=== PATIENT | female | born 1995 | race Caucasian/White ===

== ENCOUNTER → 2017-01-10 13:12 | Outpatient (CLI) | payer OTHER | END | disposition home or self-care (01) | LOC: D.US 01-04 09:00 | DX: E04.9 Nontoxic goiter, unspecified (principal) ==

== ENCOUNTER → 2017-06-16 14:52 | Outpatient (CLI) | payer OTHER ==
[2017-06-16 16:15] LABS: APPEARANCE CLEAR (CLEAR); BILIRUBIN NEGATIVE (NEGATIVE); COLOR YELLOW (YELLOW); GLUCOSE NEGATIVE (NEGATIVE); KETONE NEGATIVE (NEGATIVE); LEUKOCYTE ESTERASE NEGATIVE (NEGATIVE); NITRITE NEGATIVE (NEGATIVE); PROTEIN NEGATIVE (NEGATIVE); SPECIFIC GRAVITY 1.005 (1.005-1.020); UROBILINOGEN NORMAL (NORMAL)
== END | disposition home or self-care (01) ==
LOC: D.LDO 14:52
PROVIDERS: Obstetrics & Gynecology
DX: Z34.83 Encounter for supervision of other normal pregnancy, third trimester (principal); Z3A.32 32 weeks gestation of pregnancy; M54.5 Low back pain

== ENCOUNTER 2017-08-05 20:11 | Inpatient (IN) | payer OTHER ==
[~2017-08-05] VITALS: Ht 167.6 cm; Wt 72.6 kg
[2017-08-05 23:39] VITALS: Ht 167.6 cm; Wt 72.6 kg
[2017-08-07 07:30] VITALS: BP 116/75
[2017-08-07] MEDS ORDERED: IBUPROFEN600 MG PO (13:07)
[2017-08-07] MEDS ORDERED: HYDROCODON-ACE1 EAC7 PO (13:08)
== END 2017-08-07 14:00 | disposition home or self-care (01) | DRG 775 ==
LOC: D.LDO 20:11 → D.LD 20:26 → D.WS 08-06 17:27
PROVIDERS: ADMIT Obstetrics & Gynecology
PROC: 10E0XZZ Delivery of Products of Conception, External Approach (ICD-10-PCS; principal; 2017-08-05)
DX: O80 Encounter for full-term uncomplicated delivery (principal); Z3A.39 39 weeks gestation of pregnancy; Z37.0 Single live birth

== ENCOUNTER 2019-03-05 13:14 | Emergency (ER) | payer OTHER ==
[~2019-03-05] VITALS: Ht 167.6 cm; Wt 61.4 kg
[~2019-03-05 13:14] MED LIST: HYDROCODON-ACE1 EAC7 PO; IBUPROFEN600 MG PO
[2019-03-05 13:30] VITALS: Ht 167.6 cm; Wt 61.4 kg
[2019-03-05] MEDS ORDERED: [UNRECOGNIZED DRUG - REMARK] (13:33)
[2019-03-05 14:28] LABS: BASOPHILS 0.1 % (0-2); EOSINOPHILS 0.7 % (0-7); HEMATOCRIT 37.5 % (36.0-48.0); HEMOGLOBIN 13.1 g/dL (12-16); IMMATURE GRANULOCYTES 0.1 % (0-5); LYMPHOCYTES 18.7 % (15-50); MCH 31.8 pg (26.0-34.0); MCHC 34.9 g/dL (31.0-37.0); MEAN PLATELET VOLUME 9.6 fL (7.4-10.4); MONOCYTES 3.6 % (2-11); NEUTROPHILS 76.8 % (40-80); RBC 4.12 10x6/uL (4.00-5.40); RDW 12.4 % (11.5-14.5); WBC 7.4 10x3/uL (4.8-10.8)
[2019-03-05 14:29] LABS: PLATELET COUNT 263 10x3/uL (130-400)
[2019-03-05 14:31] LABS: APPEARANCE HAZY (CLEAR); COLOR YELLOW (YELLOW); GLUCOSE NEGATIVE (NEGATIVE); KETONE NEGATIVE (NEGATIVE); NITRITE NEGATIVE (NEGATIVE); PROTEIN NEGATIVE (NEGATIVE)
[2019-03-05 14:32] LABS: BILIRUBIN NEGATIVE (NEGATIVE)
[2019-03-05 14:50] LABS: ALBUMIN 3.4 g/dL (3.4-5.0); ALKALINE PHOSPHATASE 67 U/L (46-116); ALT (SGPT) 14 U/L (10-68); BILIRUBIN - TOTAL 0.27 mg/dL (0.2-1.3); CALC OSMOLALITY 267 mosm/kg (275-300); CALCIUM 8.6 mg/dL (8.5-10.1); CARBON DIOXIDE 28.1 mmol/L (21.0-32.0); CHLORIDE - SERUM 100 mmol/L (98-107); CREATININE - SERUM 0.4 mg/dL (0.6-1.3); GLUCOSE 90 mg/dL (74-106); PROTEIN - SERUM 7.5 g/dL (6.4-8.2); SODIUM 135 mmol/L (136-145); UREA NITROGEN 6 mg/dL (7-18); eGFR NON AFRICAN AMERICAN > 90 mL/min (90-120)
[2019-03-05 15:14] LABS: HCG - QUANTITATIVE (MATERNAL) 196837 mIU/mL
[2019-03-05] MEDS ORDERED: TYLENOL W/CODEI1 TAB PO (17:25)
[2019-03-05 18:36] VITALS: BP 132/70
== END 2019-03-05 18:34 | disposition home or self-care (01) ==
LOC: D.ER 13:14
PROVIDERS: Emergency Medicine
DX: O46.8X1 Other antepartum hemorrhage, first trimester (principal); Z3A.10 10 weeks gestation of pregnancy

== ENCOUNTER 2019-07-12 19:33 | Outpatient (CLI) | payer OTHER ==
[2019-03-05 13:30] VITALS: BMI 21.8
[~2019-07-12 19:33] MED LIST changes: +TYLENOL W/CODEI1 TAB PO; +[UNRECOGNIZED DRUG - REMARK]
[2019-07-12 19:54] LABS: APPEARANCE CLEAR (CLEAR); BILIRUBIN NEGATIVE (NEGATIVE); COLOR YELLOW (YELLOW); GLUCOSE NEGATIVE (NEGATIVE); KETONE MODERATE mg/dL (NEGATIVE); NITRITE NEGATIVE (NEGATIVE); PROTEIN NEGATIVE (NEGATIVE)
[2019-07-12 19:55] LABS: EPITHELIAL CELLS 0-5 /hpf (0-5); RED CELLS - URINE 0-5 /hpf (0-5); WHITE CELLS - URINE 0-5 /hpf (0-5)
[2019-07-12 19:56] LABS: BACTERIA FEW /hpf (NONE SEEN)
[2019-07-12 20:45] LABS: BASOPHILS 0 % (0-2); EOSINOPHILS 0 % (0-7); HEMATOCRIT 33.9 % (36.0-48.0); HEMOGLOBIN 12.3 g/dL (12-16); IMMATURE GRANULOCYTES 0.3 % (0-5); LYMPHOCYTES 5.6 % (15-50); MCH 33.3 pg (26.0-34.0); MCHC 36.3 g/dL (31.0-37.0); MCV 91.9 fL (80.0-100.0); MEAN PLATELET VOLUME 10.1 fL (7.4-10.4); MONOCYTES 3.4 % (2-11); NEUTROPHILS 90.7 % (40-80); PLATELET COUNT 228 10x3/uL (130-400); RBC 3.69 10x6/uL (4.00-5.40); RDW 12.6 % (11.5-14.5); WBC 8.9 10x3/uL (4.8-10.8)
[2019-07-12 21:07] LABS: ALBUMIN 2.4 g/dL (3.4-5.0); ALKALINE PHOSPHATASE 129 U/L (46-116); ALT (SGPT) 13 U/L (10-68); AMYLASE - SERUM 58 U/L (25-115); BILIRUBIN - TOTAL 0.48 mg/dL (0.2-1.3); CALC OSMOLALITY 265 mosm/kg (275-300); CALCIUM 8.1 mg/dL (8.5-10.1); CARBON DIOXIDE 21.8 mmol/L (21.0-32.0); CHLORIDE - SERUM 103 mmol/L (98-107); CREATININE - SERUM 0.3 mg/dL (0.6-1.3); GLUCOSE 78 mg/dL (74-106); LIPASE 132 U/L (73-393); POTASSIUM - SERUM 3.2 mmol/L (3.5-5.1); PROTEIN - SERUM 6.5 g/dL (6.4-8.2); SODIUM 135 mmol/L (136-145); UREA NITROGEN 5 mg/dL (7-18); eGFR NON AFRICAN AMERICAN > 90 mL/min (90-120)
[2019-07-13 05:28] LABS: APPEARANCE CLEAR (CLEAR); COLOR DK YELLOW (YELLOW); NITRITE NEGATIVE (NEGATIVE); PROTEIN NEGATIVE (NEGATIVE); SPECIFIC GRAVITY 1.015 (1.005-1.020)
[2019-07-13 05:29] LABS: BILIRUBIN NEGATIVE (NEGATIVE); GLUCOSE NEGATIVE (NEGATIVE); KETONE MODERATE mg/dL (NEGATIVE)
[2019-07-13 09:49] LABS: APPEARANCE CLEAR (CLEAR); BILIRUBIN NEGATIVE (NEGATIVE); COLOR YELLOW (YELLOW); GLUCOSE NEGATIVE (NEGATIVE); KETONE NEGATIVE (NEGATIVE); NITRITE NEGATIVE (NEGATIVE); PROTEIN NEGATIVE (NEGATIVE); SPECIFIC GRAVITY 1.015 (1.005-1.020); UROBILINOGEN NORMAL (NORMAL)
== END 2019-07-13 11:00 ==
LOC: D.LDO 19:33 → D.LD 22:29 → D.LDO 07-13 11:00
PROVIDERS: ATTEND Obstetrics & Gynecology
DX: O26.899 Other specified pregnancy related conditions, unspecified trimester (principal); Z3A.00 Weeks of gestation of pregnancy not specified; R11.2 Nausea with vomiting, unspecified

== ENCOUNTER → 2019-08-27 13:38 | Outpatient (CLI) | payer OTHER ==
[2019-03-05 13:30] VITALS: BMI 21.8
[~2019-08-27 13:38] MED LIST changes: +HYDROCODON-ACE1 EA10 PO; +MOTRIN600 MG PO
== END | disposition home or self-care (01) ==
LOC: D.LDO 13:38
PROVIDERS: ATTEND Obstetrics & Gynecology
DX: O36.8130 Decreased fetal movements, third trimester, not applicable or unspecified (principal); Z3A.36 36 weeks gestation of pregnancy

== ENCOUNTER → 2019-09-02 15:27 | Outpatient (CLI) | payer OTHER ==
[2019-03-05 13:30] VITALS: BMI 21.8
[2019-09-02 16:54] LABS: APPEARANCE CLEAR (CLEAR); BACTERIA MANY /hpf (NEGATIVE); BILIRUBIN NEGATIVE (NEGATIVE); COLOR YELLOW (YELLOW); GLUCOSE NEGATIVE (NEGATIVE); KETONE NEGATIVE (NEGATIVE); MUCUS <1+ /lpf (NONE SEEN); NITRITE NEGATIVE (NEGATIVE); PROTEIN NEGATIVE (NEGATIVE); RED CELLS - URINE OCC /hpf (0-5); UROBILINOGEN NORMAL (NORMAL)
== END | disposition home or self-care (01) ==
LOC: D.LDO 15:27
PROVIDERS: ATTEND Obstetrics & Gynecology
DX: O26.893 Other specified pregnancy related conditions, third trimester (principal)

== ENCOUNTER 2019-09-13 17:01 | Inpatient (IN) | payer OTHER ==
[~2019-09-13] VITALS: Ht 167.6 cm; Wt 74.1 kg
[~2019-09-13 17:01] MED LIST changes: -HYDROCODON-ACE1 EA10 PO; -MOTRIN600 MG PO
[2019-09-14] VITALS (19 sets, daily range): BP systolic 99–131; BP diastolic 56–85; Ht 167.6 cm; Wt 74.1 kg
[2019-09-14 06:36] LABS: UDS - AMPHET NEGATIVE QUAL (NEGATIVE); UDS - BARB NEGATIVE QUAL (NEGATIVE); UDS - BENZO NEGATIVE QUAL (NEGATIVE); UDS - COCAINE NEGATIVE QUAL (NEGATIVE); UDS - OPIATE NEGATIVE QUAL (NEGATIVE); UDS - PCP NEGATIVE QUAL (NEGATIVE); UDS - THC NEGATIVE QUAL (NEGATIVE)
[2019-09-14 07:31] LABS: HEMATOCRIT 34.8 % (36.0-48.0); HEMOGLOBIN 11.4 g/dL (12-16); MCH 31.2 pg (26.0-34.0); MCHC 32.8 g/dL (31.0-37.0); MCV 95.3 fL (80.0-100.0); RBC 3.65 10x6/uL (4.00-5.40); RDW 13.1 % (11.5-14.5); WBC 8.7 10x3/uL (4.8-10.8)
--- NOTE | 2019-09-14 12:24 | NUR ---
DR PERALES AT [facility]. UPDATES SIGNIFICANT OTHER ON PT STATUS.
--- NOTE | 2019-09-14 12:36 | NUR ---
DR SMITH TO PT ROOM-1274 TO SPEAK WITH FAMILY.
--- NOTE | 2019-09-14 13:20 | NUR ---
DR SMITH CALLS. ORDER RECEIVED TO REPEAT KUB XRAY. RADIOLOGY DEPT NOTIFIED OF ORDER.
--- NOTE | 2019-09-14 14:19 | NUR ---
PATIENT CONTINUES TO HAVE EPISODES OF VOMITING AFTER GIVING ZOFRAN 4MG IV X1 IN PACU. AT [address] CALDERON REGARDING THE ABOVE. VERBAL ORDERS RECEIVED TO ADMINISTER PHENERGAN 12.5MG IV X1 IN PACU NOW. ORDERS RECEIVED FOR PHENERGAN 12.5MG IM PRN X1. ORDERS RECEIVED AND IMPLEMENTED. WILL CONTINUE TO MONITOR.
[2019-09-14 14:31] LABS: BASOPHILS 0.2 % (0-2); EOSINOPHILS 0.4 % (0-7); HEMATOCRIT 36.8 % (36.0-48.0); HEMOGLOBIN 12.2 g/dL (12-16); IMMATURE GRANULOCYTES 0.3 % (0-5); LYMPHOCYTES 11.2 % (15-50); MCH 31.4 pg (26.0-34.0); MCHC 33.2 g/dL (31.0-37.0); MCV 94.6 fL (80.0-100.0); MEAN PLATELET VOLUME 10.6 fL (7.4-10.4); MONOCYTES 4.4 % (2-11); NEUTROPHILS 83.5 % (40-80); PLATELET COUNT 234 10x3/uL (130-400); RBC 3.89 10x6/uL (4.00-5.40); RDW 13.6 % (11.5-14.5)
[2019-09-14 14:32] LABS: WBC 13.9 10x3/uL (4.8-10.8)
[2019-09-14 14:34] LABS: APTT 27.5 SECONDS (22.8-39.4); INR 1.03 (0.85-1.17)
--- NOTE | 2019-09-14 14:35 | NUR ---
RECEIVED PT FROM VIA BED TO ROOM 1274. BED LOCKED AND PLACED IN LOW POSITION. VSS. HRRR WITHOUT AUDIBLE MURMUR. BBS WITH INSPIRATORY CRACKLES. PT STATES SMOKER (5-6 CIG/DAY). PT INSTRUCTED ON INCENTIVE SPIROMETER AND TCDB. PT PULLS 1600 ON INCENTIVE SPIROMETER. ABDOMEN SOFT/NON-DISTENDED. ABDOMINAL DRESSING DRY WITHOUT DRAINAGE NOTED. SMALL AMT OF SEROSANGUINOUS VAGINAL DISCHARGE NOTED. MOD EDEMA NOTED TO LABIA. NEG HOMANS' SIGN. PPP. NO EDEMA NOTED TO BLE. SCDS ON BLE. PUMP ON. CASILLAS TO GRAVITY DRAINING DARK, YELLOW URINE. ICE PACK TO INCISION. PT PROVIDED SURGICAL PILLOW AND INSTRUCTED ON USE. PIV OF NS INFUSING AT 125 ML/HR TO RIGHT WRIST. SITE CLEAR. PT STATES INCISIONAL PAIN OF "8" ON 0-10 PAIN SCALE. PT ORIENTED TO ROOM, BED, AND CALL LIGHT. SR UP X 2. CALL LIGHT IN REACH. FAMILY AT BEDSIDE.
--- NOTE | 2019-09-14 14:43 | NUR ---
DILAUDID ELECTROMAGNET CRANE OPERATOR STARTED ORDERED. PT INSTRUCTED ON MED AND USE OF ELECTROMAGNET CRANE OPERATOR BUTTON. DEMONSTRATES UNDERSTANDING.
--- NOTE | 2019-09-14 15:00 | NUR ---
ATTEMPT PIV START X 3. UNSUCCESSFUL.
--- NOTE | 2019-09-14 15:02 | NUR ---
DR CALDERON NOTIFIED OF NEED FOR PIV START.
--- NOTE | 2019-09-14 15:21 | NUR ---
DR CALDERON TO ROOM. SL STARTED TO LEFT HAND WITH 20 GAUGE CATHELON X 1 VENIPUNCTURE. PT SHANTEL WELL.
--- NOTE | 2019-09-14 15:29 | NUR ---
DR SMITH NOTIFIED OF LAB RESULTS. ORDER RECEIVED TO REPEAT CBC IN 2 HOURS.
--- NOTE | 2019-09-14 16:00 | NUR ---
PT LYING SUPINE IN BED. EYES CLOSED. RESP NON-LABORED. PT NOT DISTURBED TO ALLOW FOR REST. SR UP X2. CALL LIGHT IN REACH.
--- NOTE | 2019-09-14 16:50 | NUR ---
PT IN SEMI-RAY'S POSITION IN BED. CONSUMING CLEAR LIQUID DIET. TOLERATING WELL. STATES PAIN MED RELEIVING PAIN. STATES "I DON'T LIKE HOW IT MAKES ME SO SLEEPY".
--- NOTE | 2019-09-14 18:30 | NUR ---
DR SMITH CALLS. NOTIFIED PER Rebeka ESPINOZA RN THAT CBC RESULTS NOT BACK YET. ORDERS RECEIVED.
[2019-09-14 18:36] LABS: BASOPHILS 0.2 % (0-2); EOSINOPHILS 0.4 % (0-7); HEMOGLOBIN 12.2 g/dL (12-16); IMMATURE GRANULOCYTES 0.5 % (0-5); LYMPHOCYTES 13.1 % (15-50); MCH 31.3 pg (26.0-34.0); MCHC 33.9 g/dL (31.0-37.0); MEAN PLATELET VOLUME 10.9 fL (7.4-10.4); MONOCYTES 5.7 % (2-11); NEUTROPHILS 80.1 % (40-80); PLATELET COUNT 241 10x3/uL (130-400); RDW 13.7 % (11.5-14.5); WBC 12.8 10x3/uL (4.8-10.8)
[2019-09-14 18:38] LABS: MCV 92.3 fL (80.0-100.0)
--- NOTE | 2019-09-14 18:57 | NUR ---
PT SITTING UP IN BED. CARING FOR INFANT. PERIPAD CHANGED WITH MOD AMT OF SEROSANGUINOUS DISCHARGE NOTED. MOD EDEMA TO LABIA. ICA PACK TO LABIA. ABDOMINAL DRESSING DRY WITHOUT DRAINAGE. FRESH ICE PACK TO INCISION. I/O COMPLETED. PT STATES PAIN OF "5" ON 0-10 PAIN SCALE. STATES PAIN MED RELIEVING PAIN MED. REQUESTS AND RECEIVES TAKEN TO NURSERY TO ALLOW PT TO REST. NO FAMILY IN ROOM AT THIS TIME.
[2019-09-14 19:06] LABS: APTT 24.9 SECONDS (22.8-39.4); PROTIME 12.7 SECONDS (11.6-15.0)
--- NOTE | 2019-09-14 19:55 | NUR ---
pt in with visitors at this time. alert and oriented. no distress noted. trudi bradley rn
--- NOTE | 2019-09-14 20:45 | NUR ---
pt spuse has arrived. pt still with visitors and infnat in nursery. pt states that she hurts with coughing. pt encouraged to use animal care giver as needed to control pain. understanding verbalized. alvarez rae
--- NOTE | 2019-09-14 21:11 | NUR ---
CHICKEN BROTH AND JELLO PROVIDED PER PT REQUEST. NO FURTHER NEEDS IDENTIFIED. PT SITTING UP IN BED BOTTLE FEEDING INFANT AT THIS TIME. FAMILY AND FRIENDS REMAIN AT BEDSIDE FOR SUPPORT. BED REMAINS LOCKED IN LOW POSITION, SIDE RAILS UPX2, CALL CONKLIN AND TRAY TABLE IN REACH. WILL CONTINUE TO MONITOR.
--- NOTE | 2019-09-14 21:20 | NUR ---
PT REC'D IN BED AT THIS TIME. MULTIPLE VISITORS AT THE BEDSIDE. NO ACUTE DISTRESS NOTED. IV OF NS INFUSING TO THE RT WRIST. SITE CLEAR AND PATNET AT THIS TIME. LUNGS WITH EXPIRATORY WHEEZES THAT CLEAR WITH COUGHING. BS+. DRESSING TO ABDOMEN CDI. CASILLAS CATH PATENT. 150 ML OF YELLOW URINE EMPTIED. SCDS ON AND FUNCTIONAL. PT ENCOURAGED TO COUGH AND DEEP BREATHE. UNDERSTANDING VERBALIZED. SIDERAIL UP FOR SAFETY. CALL LIGHT IN PT REACH. Pa FABIAN RN
--- NOTE | 2019-09-14 21:20 | NUR ---
PT ASLEEP AT THIS TIME RESTING WELL AT THIS TIME. NO DISTRESS NOTED AT THIS TIME. Pa FABIANRN
--- NOTE | 2019-09-14 22:11 | NUR ---
PT SITTING UP IN BED, REQUESTS THAT GO BACK TO THE NURSERY. ISMAEL FUNK BRINGING BABY BACK TO NURSERY VIA OPEN CRIB. PTS SIGNIFICANT OTHER PROVIDED WITH SHEETS,BLANKET AND PILLOWS. NO FURTHER NEEDS IDENTIFIED. WILL CONTINUE TO MONITOR.
[2019-09-15] VITALS (7 sets, daily range): BP systolic 114–137; BP diastolic 70–83
--- NOTE | 2019-09-15 00:30 | NUR ---
INFANT TAKEN TO PATIENT FOR FEEDING AT THIS TIME. COUGHING AND DEEP BREATHING PERFORMED AT THIS TIME. WILL CONTINUE TO MONITOR, NO NEEDS VOICED AT THIS TIME. Pa FABIAN. RN
--- NOTE | 2019-09-15 01:15 | NUR ---
VSS. PERICARE PROVIDED AT THIS TIME. NO ACUTE DISTRESS NOTED AT THIS TIME. WATER TAKEN TO PATIENT. 150 ML EMPTIED FROM CASILLAS CATH AT THIS TIME. Pa FABIAN RN
--- NOTE | 2019-09-15 04:01 | NUR ---
PT REC'D IN BED AT THIS TIME. VSS. 200 ML EMPTIED FROM CASILLAS CATH AT THIS TIME. PT STATES THAT PAIN IS AN 8 THIS AM STATES THAT BACK AND HIPS HURTS THIS MORNING. PT ENCOURAGED TO USE NEEDLE LOOM OPERATOR FOR PAIN CONTROL. NO DISTRESS NOTED. Pa FABIAN RN
--- NOTE | 2019-09-15 04:20 | NUR ---
LAB HERE FOR BLOOD DRAW. Pa FABIAN RN
[2019-09-15 06:06] LABS: BASOPHILS 0.1 % (0-2); EOSINOPHILS 0.7 % (0-7); IMMATURE GRANULOCYTES 0.1 % (0-5); MCH 30.9 pg (26.0-34.0); MCHC 32.7 g/dL (31.0-37.0); MEAN PLATELET VOLUME 10.7 fL (7.4-10.4); MONOCYTES 5.1 % (2-11); RDW 14.2 % (11.5-14.5)
[2019-09-15 06:11] LABS: HEMATOCRIT 27.5 % (36.0-48.0); MCV 94.5 fL (80.0-100.0); PLATELET COUNT 188 10x3/uL (130-400); RBC 2.91 10x6/uL (4.00-5.40)
[2019-09-15 06:29] LABS: ALBUMIN 1.2 g/dL (3.4-5.0); ALKALINE PHOSPHATASE 122 U/L (46-116); ALT (SGPT) 7 U/L (10-68); BILIRUBIN - TOTAL 0.16 mg/dL (0.2-1.3); CALC OSMOLALITY 270 mosm/kg (275-300); CALCIUM 7.3 mg/dL (8.5-10.1); CARBON DIOXIDE 20.8 mmol/L (21.0-32.0); CHLORIDE - SERUM 107 mmol/L (98-107); CREATININE - SERUM 0.3 mg/dL (0.6-1.3); POTASSIUM - SERUM 3.8 mmol/L (3.5-5.1); PROTEIN - SERUM 3.7 g/dL (6.4-8.2); SODIUM 138 mmol/L (136-145); UREA NITROGEN 4 mg/dL (7-18); eGFR NON AFRICAN AMERICAN > 90 mL/min (90-120)
[2019-09-15 06:42] LABS: GLUCOSE 57 mg/dL (74-106)
--- NOTE | 2019-09-15 07:15 | NUR ---
PT SITTING UP IN BED AWAKE & ALERT X3 WITH NO C/O AT THIS TIME. PLAN OF CARE DISCUSSED W/ PT. PT VOICED UNDERSTANDING. SR UP X2 CALL KATERIN W/IN REACH. PT IN STABLE CONIDTION AT THIS TIME.
--- NOTE | 2019-09-15 07:35 | NUR ---
PAIN MEDS GIVEN TO PT AT THIS TIME. PT ENCOURAGED TO EAT BREAKFAST W/ MEDS. SEE EMAR FOR PAIN SCALE. NBN RN IN ROOM AT THIS TIME ALSO.
--- NOTE | 2019-09-15 08:15 | NUR ---
PT'S IV SALINE LOCKED AT THIS TIME. IV SITE W/ NO REDNESS, SWELLING, OR PAIN. CASILLAS CATH. ALSO D/C'ED AT THIS TIME. PT ASSISTED TO RESTROOM. PT W/ NO C/O DIZZYNESS. PT W/ STEADY GAIT. PT UNABLE TO VOID AT THIS TIME. PT ABLE TO PERFORM SELF CAREN CARE. PT'S GOWN & LINENS CHANGED. PT AMBULATED W/ STEADY GAIT BACK TO BED. NEW ICE PACK GIVEN TO PT TO PLACE ON TOP OF GOWN OVER INCISION. PT IN STABLE CONDITION AT THIS TIME.
--- NOTE | 2019-09-15 08:45 | NUR ---
I have reviewed this patient and I concur with the Shift Assessment completed by the Alvina Naqvi RN, for am shift.
--- NOTE | 2019-09-15 09:30 | NUR ---
PT ASSISTED UP TO RESTROOM AT THIS TIME. PT W/ NO C/O DIZZYNESS. PT W/ STEADY GAIT. PT ABLE TO VOID W/O DIFFICULTY. PT PERFORMED OWN SANJANA CARE. PT BACK TO BED IN STABLE CONDITION AT THIS TIME. SRUPX2 CALL LIGHT W/IN REACH.
[2019-09-15 10:10] LABS: RAPID PLASMA REAGIN Non Reactive (Non Reactive)
--- NOTE | 2019-09-15 10:30 | NUR ---
PT SITTING UP IN BED HOLDING . PT W/ NO C/O AT THIS TIME. SRUPX2 CALL LIGHT W/IN REACH. PT IN STABLE CONDITION AT THIS TIME.
--- NOTE | 2019-09-15 11:30 | NUR ---
PT UP TO RESTROOM W/ NO DIZZYNESS. PT HAS STEADY GAIT. PT ABLE TO VOID W/O DIFFICULTY. PT STATES "I FEEL BETTER WHEN I'M UP OUT OF BED." PT IN STABLE CONDITION.
--- NOTE | 2019-09-15 12:15 | NUR ---
PT STATES "PAIN IS BETTER SINCE TAKING PAIN MED IT JUST HURTS TO COUGH." PT ENCOURAGED TO PLACE PILLOW OVER ABD. WHEN COUGHING. PT VOICED UNDERSTANDING.
--- NOTE | 2019-09-15 13:03 | NUR ---
PT WALKING IN HALLWAYS AT THIS TIME W/ STEADY GAIT.
--- NOTE | 2019-09-15 14:00 | NUR ---
PT SITTING UP IN BED HOLDING AT THIS TIME. SRUPX2 CALL LIGHT WITHIN REACH.
--- NOTE | 2019-09-15 15:45 | NUR ---
PT D/C'ED AT THIS TIME VIA WHEELCHAIR W/ . PT IN STABLE CONDITION.
--- NOTE | 2019-09-15 16:15 | NUR ---
PT SITTING UP IN BED AWAKE & ALERT HOLDING . PT IN STABLE CONDITION AT THIS TIME.
--- NOTE | 2019-09-15 17:50 | NUR ---
PT C/O GAS PAIN PT GIVEN SIMETHICONE AT THIS TIME. PT SITTING UP IN BED AT THIS TIME SRUPX2 CALL LIGHT W/IN REACH.
--- NOTE | 2019-09-15 19:43 | NUR ---
RN AT [facility] FOR ASSESSMENT OF PT. SEE FLOW SHEET. PT C/O PAIN 06/27 AND REQUESTED PAIN MEDS.
--- NOTE | 2019-09-15 20:10 | NUR ---
NARCO 10 GIVEN PO FOR PAIN IN THE INCISION AREA AND BACK. BABY IS IN THE ROOM WITH MOM AT THIS TIME.
--- NOTE | 2019-09-15 21:05 | NUR ---
PT IS RESTING QUIETLY IN ROOM. AT BEDSIDE. STATES PAIN IS AT A 5. AMBULATING IN ROOM.
--- NOTE | 2019-09-15 21:42 | NUR ---
PT REC'D IN BED ON PHONE AT THIS TIME. DENIES NEEDS AT THIS TIME. VERBALIZES REDUCED PAIN. NO ACUTE DISTRESS NOTED. SPOUSE AT BEDSIDE. Pa FABIAN RN
--- NOTE | 2019-09-15 22:20 | NUR ---
PT IS RESTING IN BED WATCHING TV WITH . SHE STATES HER PAIN IS NOW AT A 3. NO OTHER NEEDS AT THIS TIME.
--- NOTE | 2019-09-15 23:00 | NUR ---
Rounds: PT IS AWAKE AT THIS TIME CHANGING BABY. RE-EDUCATED ON GOOD HANDWASHING TO PREVENT SPREAD OF GERMS TO BABY AND TO HERSELF. STATES HER PAIN LEVEL IS STILL A 3.
--- NOTE | 2019-09-16 00:11 | NUR ---
BEDSIDE ROUNDING: PT IS RESTING IN BED. SHE C/O PAIN IN HER INCISION AREA AND RATED THE PAIN AN 8. SHE REQUESTED A NARCO 10 FOR PAIN. THIS WAS GIVEN. SHE STATES SHE IS GOING TO BED NOW FOR SOME REST.
--- NOTE | 2019-09-16 01:35 | NUR ---
PT STATES PAIN IS NOW A 5/10. NO NEEDS VERBALIZED AT THIS TIME. SIDERAILS UP FOR SAFETY. CALL LIGHT IN PT REACH. Pa FABIAN RN
--- NOTE | 2019-09-16 02:30 | NUR ---
Pt is sleeping soundly at this time as well as her . No c/o now.
--- NOTE | 2019-09-16 04:37 | NUR ---
Pt request pain med for incisional pain rated an 8. Narco 10 given po. Pt states she is passing gas. Is sleepy at this time and states she is going back to sleep.
[2019-09-16 05:44] VITALS: BP 120/76
--- NOTE | 2019-09-16 05:44 | NUR ---
PT VERBALIZES PAIN LEVEL OF 4. VSS. NO NEEDS VOICED. Pa FABIAN, RN
--- NOTE | 2019-09-16 08:30 | NUR ---
AM ASSESSMENT COMPLETED CHARTED ON FLOWSHEET. PT RATES PAIN AT 5/10 AND STATES IT IS GETTING BETTER SINCE SHE RECIEVED PAIN MED. BOWEL SOUNDS PRESENT AND PT IS PASSING GAS. ENCOURAGED TO WALK WHEN SHE FEELS BETTER. IN CRIB AT BEDSIDE CALL LIGHT IN REACH.
--- NOTE | 2019-09-16 10:45 | NUR ---
DENIES NEEDS AT THIS TIME, BONDING WITH CALL LIGHT IN REACH.
--- NOTE | 2019-09-16 12:30 | NUR ---
PAIN MED GIVEN PER REQUEST SCANNED TO EMAR. RATES PAIN AT 10. IN CRIB AT BEDSIDE. SIDE RAILS UP X 2 WITH CALL LIGHT IN REACH.
--- NOTE | 2019-09-16 16:30 | NUR ---
PAIN MED GIVEN FOR PAIN THAT SHE RATES AT 7/10. DENIES ANY OTHER NEEDS AT THIS TIME.
--- NOTE | 2019-09-16 17:15 | NUR ---
TOWELS PROVIDED PER REQUEST FOR HER TO SHOWER, INFANT TAKEN TO NURSERY BY NURSERY NURSE. PT UNDERSTANDS TO USE EMERGENCY CALL LIGHT IF SHE NEEDS ANY ASSISTANCE.
--- NOTE | 2019-09-16 18:00 | NUR ---
PT AND SPOUSE AMB IN HALLS WITH IN CRIB.
[2019-09-16 19:15] VITALS: BP 132/84
--- NOTE | 2019-09-16 19:15 | NUR ---
RN AT BEDSIDE. ASSESSMENT COMPLETED. SEE FLOW SHEET.
--- NOTE | 2019-09-16 20:11 | NUR ---
Pt c/o pain and rated it an 8. Narco 10 was given po. PAIN IS CRAMYP/ACHY
--- NOTE | 2019-09-16 21:15 | NUR ---
PT IS DOING WELL AT THIS TIME. sTATES PAIN IS A 6. SHE HAS BEEN AMBULATING IN THE HALLS.
--- NOTE | 2019-09-16 22:15 | NUR ---
pt states her pain level is at a 5 at this time. she is sitting up in bed playing with here baby. Before the baby was brought back to her, pt has been ambulating in the halls for her gas symptoms. at bedside.
--- NOTE | 2019-09-16 23:41 | NUR ---
pT WALKING THE HALLS AGAIN. SHE STATES SHE IS FEELING BETTER, PAIN A 5. bABY IS IN THE ROOM NOW.
[2019-09-16 23:53] VITALS: BP 121/84
--- NOTE | 2019-09-16 23:55 | NUR ---
PT IN BED WATCHING TV. SHE DID NOT C/O OF PAIN AT THIS TIME. NO OTHER C/O NOTED.
--- NOTE | 2019-09-17 00:33 | NUR ---
PT C/0 PAIN RATED AN 8. pAIN IS INCISIONAL PAIN. PLANNING TO SLEEP SOOM.
--- NOTE | 2019-09-17 02:30 | NUR ---
Pt is sleeping at this time. No c/o. is in the room.
--- NOTE | 2019-09-17 04:10 | NUR ---
Pt is awake with her baby now. States pain is ok for now. NO OTHER C/O
--- NOTE | 2019-09-17 05:20 | NUR ---
pT C/O PAIN AND RATES IT AN 8. PAIN IS INCISIONAL. nARCO 10 GIVEN PO.
--- NOTE | 2019-09-17 07:30 | NUR ---
PT SITTING UP ASLEEP AT THIS TIME. PT SAT UP NURSES CAME INTO ROOM FOR SHIFT REPORT. PT W/ NO C/O AT THIS TIME.
--- NOTE | 2019-09-17 07:51 | NUR ---
Sumi Dangelo [birth year] S: Patient states she is doing both breast and formula. will latch for 5 minutes on one breast, she will remove infant then burp, and offer infant the other breast. She will then give formula and she will drink most of the bottle. States she did breastfeed her other children and is unsure why only latches for a few minutes at a time. Denies any other questions or concerns about . Verbally agrees to let hospital staff know of her concerns or questions. Patient will like to make a [facility] appointment. O: Patient sitting up in bed holding infant who is sleeping. family member sleeping on sofa sleeping. Praised for and informed does take time, practice, and patience in the beginning. Validated patient concerns. Try stimulating infant to wake for feeding if falls asleep at the breast. Provided tips on waking a sleeping . Infant should nurse longer then 5 minutes. Allow infant to remain latched at the first breast for as long as infant will suck. It is normal for infant to suck, stop and repeat this process through out . This doesn't mean doesn't want to nurse. Supply and demand. Were the demand is needed, the supply will follow. Your body will adjust to making what infant needs as long as infant is placed to the breast for every feeding. Explained normal feeding patterns, benefits of skin to skin, feeding cues, breastmilk composition, and encouraged to practice responsive feeding to help with establishing her milk supply. Please ask for help with next feeding to stimulate to wake, if needed. Asked if patient will like to make [facility] appointment? A: Patient providing infant formula after every feeding due to latching for only 5 minutes per breast for every feeding. P: Patient will let nursery staff know if any help is needed with next feeding regarding . Elsy Lanier, CLC
--- NOTE | 2019-09-17 08:05 | NUR ---
PLAN OF CARE DISCUSSED W/ PT. PT VOICED UNDERSTANDING. PT SITTING UP IN BED AWAKE & ALERT HOLDING INFANT.
[2019-09-17 08:15] VITALS: BP 126/72
--- NOTE | 2019-09-17 08:26 | NUR ---
PT WALKING IN PAREKH AT THIS TIME W/ STEADY GAIT.
--- NOTE | 2019-09-17 09:45 | NUR ---
PT SLEEPING AT THIS TIME.
--- NOTE | 2019-09-17 10:30 | NUR ---
PT STATED "I WAS ABLE TO GO TO THE RESTROOM & HAVE A BM & HAVE BEEN PASSING GAS."
[2019-09-17] MEDS ORDERED: HYDROCODON-ACE1 EA10 PO (10:49)
[2019-09-17] MEDS ORDERED: MOTRIN600 MG PO (10:50)
[2019-09-17 12:05] VITALS: BP 134/76
--- NOTE | 2019-09-17 12:10 | NUR ---
PT C/O NICODERM PATCH "HOT" & REDNESS WHERE PATCH APPLIED. PATCH REMOVED AT THIS TIME.
--- NOTE | 2019-09-17 13:00 | NUR ---
PT SITTING UP IN BED AWAKE HOLDING W/ NO C/O AT THIS TIME.
--- NOTE | 2019-09-17 14:07 | NUR ---
PT D/C'ED AT THIS TIME W/ . PT TAKEN OUT IN WHEELCHAIR BY VOLUNTEER. PT IN STABLE CONDITION.
--- NOTE | 2019-09-30 10:40 | OP ---
PATIENT NAME: MIKEY BEAL MEDICAL RECORD: [id number] LOCATION:[facility].1274 ADMISSION DATE:09/14/19 SURGEON: VLAD MURILLO MD DATE OF OPERATION: 09/14/2019 PREOPERATIVE DIAGNOSES: Bleeding and palpable placenta accreta following a vaginal delivery. POSTOPERATIVE DIAGNOSIS: Placenta accreta. PROCEDURE: supracervical hysterectomy. SURGEON: lVad Murillo MD STRING WINDING MACHINE OPERATOR: Rey Molina MD ESTIMATED BLOOD LOSS: Blood loss was noted to be approximately 1800 preoperatively during delivery and the interim and approximately 800 intraoperative bleeding. FINDINGS: An enlarged contracted uterus with normal bilateral adnexa. Uterus was opened after the case and a posterior fundal placenta accreta was noted. SPECIMENS: Included uterus with partial cervix and retained placenta. DESCRIPTION OF PROCEDURE: The patient was taken urgently to the operating room and blood transfusion was begun of packed red blood cells. General anesthesia was performed, and the patient was prepped and draped. At this point, a Pfannenstiel skin incision was made, extended downward through the underlying subcutaneous fat to the level of the fascia. The fascia was then excised in the midline with scalpel and the fascial incision was extended bilaterally using the Arenas scissors. The superior and inferior aspects of the fascial incision were then grasped with Adal clamps times 2, tented upward, and sharply dissected from the underlying rectus muscle using the Bovie cautery and the Arenas scissors. The rectus muscles were then bluntly in the midline. The peritoneum identified and entered sharply at the superior aspect of the incision using the Metzenbaum scissors. The peritoneal incision was then extended bilaterally and inferiorly using the Metzenbaum scissors. The uterus was delivered through the incision. A defect was then made in the bilateral broad ligaments. Curved Emelia clamps were then placed across the proximal fallopian tubes and uteroovarian ligaments times 2. These were both cut, free tied, and then suture ligated bilaterally. Further dissection of the uterine vessels was performed by skeletonizing the broad ligament. The uterine arteries were identified bilaterally and clamped times 2 with curved Emelia clamps. These were then cut and suture ligated with good hemostasis noted. At the level of the superior cervix, the Vaibhav scissors were then used to excise the uterus and the cervical stump/superior vagina was then reapproximated using 0 Vicryl in an interrupted [id number] fashion. Several areas of bleeding on the peritoneum were cauterized or oversewn with 2-0 Vicryl. The pelvis was then thoroughly irrigated and all surgical sites were found to be hemostatic. A small area of the left adnexa was oversewn with 2-0 Vicryl and found to be hemostatic status post. Counts were correct for sponges, however, instrument count had not been performed due to the urgency of the case. Palpation of the pericolic gutters and abdomen and pelvis was performed. No instruments were OPERATIVE REPORT [id number] MIKEY BEAL identified. Sponge counts were correct times 2, and the fascia was repaired with 0 loop PDS times 1, and the skin was repaired with burke. A postoperative x-ray was taken and a small line was noted at the superior aspect of the KUB, which was felt to be an external towel. The C-arm KUB was then repeated ensuring there were no artifacts on the patient's abdomen and a second KUB revealed no evidence of retained sponge or instrument. The patient was transported to postanesthesia recovery stable and without incident. TRANSINT:[id number] Voice Confirmation ID: [id number] DOCUMENT ID: [id number] VLAD MURILLO MD at 1040 CC: [id number] DICTATION DATE: 09/25/19 1235 HORSERADISH GRINDER: 09/25/19 1313 DIS IN 09/17/19 [facility] [address] [place] [address]
== END 2019-09-17 14:07 | disposition home or self-care (01) | DRG 768 ==
LOC: D.LD 09-14 05:10
PROVIDERS: ADMIT Obstetrics & Gynecology; ATTEND Obstetrics & Gynecology
PROC: 0UT94ZZ Resection of Uterus, Percutaneous Endoscopic Approach (ICD-10-PCS; 2019-09-14)
PROC: 3E033VJ Introduction of Other Hormone into Peripheral Vein, Percutaneous Approach (ICD-10-PCS; 2019-09-14)
PROC: 10E0XZZ Delivery of Products of Conception, External Approach (ICD-10-PCS; principal; 2019-09-14 11:30)
DX: O99.824 Streptococcus B carrier state complicating childbirth (principal); Z37.0 Single live birth; Z3A.39 39 weeks gestation of pregnancy; O99.344 Other mental disorders complicating childbirth; F32.9 Major depressive disorder, single episode, unspecified; O99.334 Smoking (tobacco) complicating childbirth; F17.200 Nicotine dependence, unspecified, uncomplicated; O43.213 Placenta accreta, third trimester